=== PATIENT | female | born 1955 | race Caucasian/White ===

== ENCOUNTER → 2020-06-04 | Outpatient (CLI) | payer OTHER, BC ==
[~2020-06-04] VITALS: Ht 160 cm; Wt 82.5 kg
[~2020-06-04] MED LIST: BACLOFEN 10MG T10 MG PO; CELEBREX 200 M200 M1 PO; CYMBALTA60 MG PO; DILTIAZEM ER120 MG PO; HYDROXYZINE HCL50 MG PO; ISOMETHEPT-DIC1 EACH PO; LEVOTHYROXINE25 MC1 PO; LIPITOR40 MG PO; MELOXICAM15 MG PO; NAPROSYN250 MG PO; PREMPHASE 0.621 EAC1 PO; PREVACID15 MG PO; PROTONIX40 M2 PO; RELENZA5 MG IH; RELPAX40 MG PO; ROPINIROLE HCL4 M1 PO; VENLAFAXINE HC150 M1 PO; XANAX 0.5 MG0.5 MG PO; XANAX XR2 MG PO; ZOLOFT100 MG PO
[2020-06-04 10:50] VITALS: BP 140/86
--- NOTE | 2020-06-04 11:00 | NUR ---
Pain Clinic Assessment: 1. History of Osteoarthritis: EVERYWHERE History of Rheumatoid Arthritis: Not Applicable 2. Height: 5 ft. 3 in. 160.0 cm. Weight: 181.8 lb. oz. 82.464 kg. Patient's BMI: 32.2 3. Vital Signs: BP: 140/86 Pulse: 96 Resp: 18 Temp: 02 Sat: 96 ECG Mon: 4. Pain Intensity: 6-8 5. 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 Patient on Blood Thinner: None 7. History of Hypertension: Y 8. Opioid Therapy greater than 6 weeks: N Opiate Contract Signed: 9. Risk Assessment Tool Provided: 4-MOD RISK 10. Functional Assessment Tool: 11. Recreational Drug Use: Never Drug Type: Tobacco Use: Current Every Day Smoker Tobacco Type: Cigarettes Amount or Packs/day: 10 CIG How Many Years: 50 Alcohol Use: No Frequency: Quant:
--- NOTE | 2020-06-05 11:42 | HPC ---
[facility] [place] [address] PAIN MANAGEMENT CONSULTATION Name: KEE DUBOSE Room #: REG SAFIA Apple.#: [id number] Admission: 06/04/20 Attend Phys: Ger Haley DO Discharge: Date of : 55 Report #: [id number] THIS REPORT FOR: cc: OSEI BALL Physician not on staff Ger Haley DO ~ DATE OF SERVICE: 06/04/2020 REFERRING PHYSICIAN: Kita Lozada MD with [facility] CHIEF COMPLAINT: Axial back pain. HISTORY OF PRESENT ILLNESS: As you know, the patient is a 65-year-old female who reports longstanding history of low back pain that began in 1999. She denies injury or trauma. She states pain begins in low back, radiates down the bilateral posterolateral thighs to just below the knees. The patient reports that she has been seen at 5 different pain clinics prior to her referral to our clinic. She has undergone radiofrequency lesioning of the medial branch nerves x 2, one with Dr. Beckham the second with Dr. Villarreal at [facility]. The most recent was done about 4 years ago. The patient reports she has had multiple epidural injections under fluoroscopic guidance without benefit. She has also undergone spinal cord stimulator implantation x 2 and ultimately explantation and she was not noticing much in the way of improvement. The patient recently sought evaluation with Dr. Lozada at [facility] to discuss surgical options. It was determined at that time the patient was likely suffering from facet arthropathy and referred to our clinic to discuss the possibility of undergoing medial branch nerve blocks and radiofrequency lesioning of the medial branch nerves of the lumbar spine. The patient reports today her pain is continuous, steady and constant, describes the pain as shooting, sharp, stabbing and tender. Places current pain score at 8/10, daily average anywhere from 6-8/10, worst the pain has been 10+/10. The patient states the pain is exacerbated with standing still. Pain tends to improve with lying in a recliner and placing heat pads over the area. She has been referred to our service to discuss the possibility of undergoing medial branch nerve blocks and radiofrequency lesioning. PAST MEDICAL HISTORY: 1. Depression. 2. Anxiety. 3. Restless legs syndrome. 4. Gastroesophageal reflux disease. 5. Chronic axial back pain. 6. Colon problems. 7. Thyroid disease. 8. Peptic ulcer disease. [address] [address] PAIN MANAGEMENT CONSULTATION Name: KEE DUBOSE Room #: REG CLI [facility]#: [id number] Admission: 06/04/20 Attend Phys: Ger Haley DO Discharge: Date of : 55 Report #: [id number] 9. Chronic anemia. PAST SURGICAL HISTORY: 1. Tonsillectomy. 2. Cholecystectomy. 3. Hysterectomy. 4. Back surgery. 5. Spinal cord stimulator x 2 with final explantation. SOCIAL HISTORY: The patient admits to 10 cigarettes smoking per day for over 50 years. Denies IV or illicit drug use. Denies any chronic alcohol use. She reports she is retired, retiring about 3 years ago, not receiving workmen's compensation nor is she trying to obtain disability benefits. She is not in litigation in regard to pain. She is accompanied by her present in room today. REVIEW OF SYSTEMS: Positive for weight gain, fatigue and weakness, frequent and recurrent headaches, wearing corrective eyewear, nosebleeds, heart trouble, palpitations, shortness of breath with walking or lying flat, loss of appetite, nausea, vomiting, abdominal pain, nocturia, lightheadedness and dizziness, tremors, memory loss with confusion, nervousness, depression, anxiety, hypothyroidism, heat and cold intolerance, bleeding and bruising tendencies. All other review of systems negative per 12-point review of systems other than those listed in history of present illness. ALLERGIES: OXYCONTIN. CURRENT MEDICATIONS: Meloxicam 15 mg once a day, hydroxyzine 50 mg 4 times a day, diltiazem ER 120 mg once a day, ropinirole 4 mg once a day, pantoprazole 40 mg per day, levothyroxine 25 mcg per day, venlafaxine ER 150 mg 3 tabs in the morning, Xanax 2 mg 3 times a day, atorvastatin 40 mg per day. IMAGING: MRI lumbar spine obtained 04/02/2020 shows L1-2 with right greater than left facet arthropathy in combination with the scoliotic curvature causing mild right neural foraminal narrowing, no central canal stenosis. L2-3, minimal disk bulge, mild facet arthropathy, scoliotic curvature. No significant central canal or neural foraminal stenosis. L3-4 shows mild disk bulge, tiny superimposed right foraminal disk protrusion, mild facet arthropathy and ligamentum flavum hypertrophy. No significant central canal or neural foraminal stenosis. L4-5 degenerative disk disease, bulging disk material, superimposed posterior disk protrusion, facet arthropathy, which is advanced in nature and ligamentum flavum hypertrophy. A combination of results in very mild right neural foraminal narrowing and [id number] central canal stenosis. The herniated disk material comes in close proximity of the transverse and right L5 nerve root. L5-S1 shows facet arthropathy resulting in moderate left and mild right neural foraminal stenosis, no central canal stenosis. [facility] [address] [place] [address] PAIN MANAGEMENT CONSULTATION Name: KEE DUBOSE Room #: REG Jaja ..#: [id number] Admission: 06/04/20 Attend Phys: Ger Haley DO Discharge: Date of : 55 Report #: [id number] PQRS: The patient has known arthritic changes of the lumbar spine. Denies rheumatoid arthritis. She is placing pain intensity anywhere from 6-8/10. She is not a fall risk, but has had a fall in last 3 months, apparently had a fall on Wednesday of last week, trying to waste picker her grandson. She is not on blood thinners, but is treated for hypertension. She is not on chronic opioids, has a moderate opioid addiction potential. Pain impact is 51/70, severe interference of daily activities secondary to pain. PHYSICAL EXAMINATION: VITAL SIGNS: Blood pressure 140/86, pulse 96, respiratory rate 18 and unlabored. The patient is 96% on room air. Height 5 feet 3 inches tall, weight 181.8 pounds, BMI calculated 32.2. GENERAL: Well-developed, well-nourished, well-hydrated exogenously obese 65-year-old female, appearing her stated age, placing current pain score at 6/10. HEENT: Normocephalic, atraumatic. Pupils are round. Extraocular muscles are intact. The patient is using a mask in compliance with COVID-19 regulations. LUNGS: Decreased breath sounds bilaterally. There does not appear to be a prolonged expiratory phase. No wheezes or rhonchi. CARDIOVASCULAR: Regular. No appreciable gallop, no rub. ABDOMEN: Soft, obese. EXTREMITIES: Show no clubbing, no cyanosis. No appreciable edema. MUSCULOSKELETAL: Lower extremity strength is equal and symmetrical 5/5. She is intact to light touch from L1 through S2 dermatomes. Seated straight leg raising negative. Supine straight leg raising negative. Juan's test is negative. Modified Gaenslen's positive for axial low back pain. Ankle clonus negative. Babinski is negative. Lumbar provocation testing is met with slight increase in axial back pain with radiation to the buttocks. ASSESSMENT: 1. Lumbosacral spondylosis without radiculopathy. 2. Facet arthropathy of the lumbar spine. 3. Chronic intractable pain. PLAN: 1. Based on today's physical exam and history the patient has provided, the description the patient uses in regard to pain as well as location of symptoms, the likely source of the patient's pain is the facet joints of the lower lumbar spine. The patient and I had a long discussion today about the treatment options for facet arthropathy, the following was discussed with the patient today. We discussed physical therapy, stretching exercises, core strengthening and a concerted effort at weight loss as the gold standard of treatment for facet arthropathy pain. We discussed suggestions in medication management to assist [address] [address] PAIN MANAGEMENT CONSULTATION Name: KEE DUBOSE Room #: REG Jaja Harris#: [id number] Admission: 06/04/20 Attend Phys: Ger Haley DO Discharge: Date of : 55 Report #: [id number] in pain control. These could include rotation of nonsteroidal anti-inflammatory, possibly even the addition of a neuropathic medication if her symptoms would require. I would not recommend long-term opioid therapy in this patient's case. We discussed addressing the facet joints directly whether this be intra-articular facet injections, medial branch nerve blocks and radiofrequency lesioning. We also discussed surgical options with the patient. After reviewing the risks and benefits of all the proposed treatment options, the patient chose to begin with medial branch nerve blocks and possible radiofrequency lesioning. 2. The patient has been advised risks and benefits of medial branch nerve blocks and radiofrequency lesioning. The risks include but are not necessarily limited to bleeding, bruising, infection, worsening pain, no relief of pain, also risk of temporary or permanent muscle weakness, temporary or permanent inadvertent nerve damage, possible paralysis and . The patient states understood and wished to proceed. 3. No medication changes made at today's visit. We recommend the patient to continue current medical therapy as prior prescribed. 4. We plan to see the patient back in followup visit in 1 week. At that time, review the efficacy of the medial branch nerve blocks provided today. If she sees significant pain improvement with these medial branch blocks and it does correlate with the timing of the medication, we would then plan to undergo the next in the series. If those second series are also successful, she would be a candidate for radiofrequency lesioning. We will have the patient follow up next week and keep you apprised of response. It is noted that the patient underwent the procedure with a pain level of 6-8/10 and upon discharge the pain was around 2/10. 5. We wish to thank Dr. Lozada for the referral of the patient to our clinic. We will keep you apprised of response to treatment as we address facet arthropathy pain. Again, we wish to thank you for the opportunity to see the patient in consultation. PROCEDURE NOTE DESCRIPTION OF PROCEDURE: Bilateral L2, L3, L4, L5 medial branch nerve blocks under fluoroscopic guidance. This is the first of 2 diagnostic medial branch blocks on the right and left sides that the patient is undergoing. After obtaining written consent, the patient was taken back to the fluoroscopy suite and placed in a prone position on the fluoroscopy table with a pillow under the abdomen to decrease the lumbar lordosis. The skin overlying the lumbosacral area was prepped and draped in an aseptic fashion. The L3 transverse process corresponding the L2 medial branch nerve, the L4 transverse [facility] [address] [place] [address] PAIN MANAGEMENT CONSULTATION Name: KEE DUBOSE Room #: REG [facility] [id number] Admission: 06/04/20 Attend Phys: Ger Haley DO Discharge: Date of : 55 Report #: [id number] process corresponding the L3 medial branch nerve and the L5 transverse process corresponding the L4 medial branch nerve on the right and left sides were visualized under AP fluoroscopy. The skin and subcutaneous tissue overlying the target site(s) of injection on the right and left were anesthetized using 2 mL of 1% lidocaine. A 22-gauge 3-1/2 inch spinal needle with a bent tip was advanced under fluoroscopic guidance using a superior to inferior and lateral to medial approach to the dorsal, superior and medial aspect of the base of the transverse process(es). The needles were then directed ventral, medial and caudad to reach the target location(s). An oblique view facilitated needle placement with properly positioned needles(s) in the middle of the "eye" of the Jesse dog for the medial branch block(s). At each site the needle(s) rested on periosteum. After negative aspiration for heme or CSF, 0.5 mL of bupivacaine 0.5% was slowly injected at each site to avoid forcing the solution away from the target points(s). The needle(s) were then removed. The L5 dorsal ramus block on the right and left side was performed using a slightly oblique approach under fluoroscopic guidance, placing the needle within the groove between the sacral site and the superior articular process of S1. The needle rested on periosteum. After negative aspiration for heme or CSF, 0 mL of Omnipaque dye was injected at under live fluoroscopy, demonstrating absence of vascular uptake. After negative aspiration for heme or CSF, 0.5 mL of bupivacaine 0.5% was slowly injected to avoid forcing the solution away from the target point. The needle was then removed. Sterile bandages were placed over the injection site. There were no apparent complications. The patient tolerated the procedure well and was carefully escorted to the recovery room in stable condition. The VAS was 6-8/10 before the procedure and 2/10, 10 minutes after the procedure. After meeting discharge criteria, the patient was discharged home. <ELECTRONICALLY SIGNED> By: Ger Haley DO 06/05/20 1142 1252 1604 Ger Haley DO /nt
== END ==
LOC: PAIN 07:00
PROVIDERS: ATTEND Anesthesiology Pain Medicine
DX: M47.817 Spondylosis without myelopathy or radiculopathy, lumbosacral region (principal); M47.816 Spondylosis without myelopathy or radiculopathy, lumbar region; G89.29 Other chronic pain; F32.9 Major depressive disorder, single episode, unspecified; M54.5 Low back pain; F41.9 Anxiety disorder, unspecified; E07.9 Disorder of thyroid, unspecified; G25.81 Restless legs syndrome; K21.9 Gastro-esophageal reflux disease without esophagitis; D64.9 Anemia, unspecified; Z90.49 Acquired absence of other specified parts of digestive tract; Z90.710 Acquired absence of both cervix and uterus; Z98.890 Other specified postprocedural states; Z79.899 Other long term (current) drug therapy

== ENCOUNTER → 2020-06-11 | Outpatient (CLI) | payer OTHER, BC ==
[~2020-06-11] VITALS: Ht 160 cm; Wt 81.6 kg
[2020-06-11 13:41] VITALS: BP 124/86
--- NOTE | 2020-06-11 14:01 | NUR ---
Pain Clinic Assessment: 1. History of Osteoarthritis: EVERYWHERE History of Rheumatoid Arthritis: Not Applicable 2. Height: 5 ft. 3 in. 160.0 cm. Weight: 179.8 lb. oz. 81.557 kg. Patient's BMI: 31.9 3. Vital Signs: BP: 124/86 Pulse: 102 Resp: 16 Temp: 02 Sat: 96 ECG Mon: 4. Pain Intensity: 5 5. 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 Patient on Blood Thinner: None 7. History of Hypertension: Y 8. Opioid Therapy greater than 6 weeks: N Opiate Contract Signed: 9. Risk Assessment Tool Provided: 4-MOD RISK 10. Functional Assessment Tool: 11. Recreational Drug Use: Never Drug Type: Tobacco Use: Current Every Day Smoker Tobacco Type: Cigarettes Amount or Packs/day: 1/2 PACK How Many Years: 50 Alcohol Use: No Frequency: Quant: Y
--- NOTE | 2020-06-12 11:53 | HPC ---
[facility] [place] [address] PAIN MANAGEMENT CONSULTATION Name: KEE DUBOSE Room #: REG SAFIA Steven#: [id number] Admission: 06/11/20 Attend Phys: Ger Haley DO Discharge: Date of : 55 Report #: [id number] THIS REPORT FOR: cc: OSEI BALL Physician not on staff Ger Haley DO ~ DATE OF SERVICE: 06/11/2020 CHIEF COMPLAINT: Axial back pain. HISTORY OF PRESENT ILLNESS: As you know, the patient is a 65-year-old female with longstanding history of axial back pain issues. She states her pain began somewhere in 1999. She was seen in consultation per the request of Dr. Mora on 06/04/2020 diagnosed with lumbosacral spondylosis without radicular symptoms secondary to facet arthropathy of the lumbar spine. She was established that appointment to undergo medial branch nerve blocks, which were successful at alleviating her symptoms by greater than 90%, lasting for 3-4 hours. This is consistent with the injection, medication provided. She returns today in followup visit to undergo the second in the series of medial branch blocks. If these are then successful at alleviating symptoms again by a significant amount and for the prescribed amount of time, we would then move forward with radiofrequency lesioning of the medial branch nerves of the lumbar spine. She returns today for the second in the series of medial branch nerve blocks. The patient is placing current pain score at 5/10. ALLERGIES: OXYCONTIN. CURRENT MEDICATIONS: Meloxicam, hydroxyzine, diltiazem ER, ropinirole, pantoprazole, levothyroxine, venlafaxine, and Xanax. SOCIAL HISTORY: The patient admits to 10 cigarettes per day over the last 50 years. Denies IV or illicit drug use. Denies any chronic alcohol use. She is retired, retiring about 3 years ago, accompanied by her present in room today. IMAGING: No new imaging available. PQRS: The patient has known arthritic changes of the lumbar spine. Denies rheumatoid arthritis. She is placing pain intensity today at 5/10. She is not a fall risk, but has not had a fall, other than trying to tack picker her grandson, which was indicated in the previous evaluation. There has been no falls since that time. She is not on blood thinners, but is treated for hypertension. She is not on chronic opioids and has a [id number] opioid addiction potential based on assessment tool. Pain impact is 51/70, severe interference of daily activities secondary to pain. [address] [address] PAIN MANAGEMENT CONSULTATION Name: KEE DUBOSE Room #: REG CLJaja Harris#: [id number] Admission: 06/11/20 Attend Phys: Ger Haley DO Discharge: Date of : 55 Report #: [id number] PHYSICAL EXAMINATION: VITAL SIGNS: Blood pressure 124/86, pulse is 102, respiratory rate 16 and unlabored. The patient is 96% on room air. Height 5 feet 3 inches tall, weight 179.8 pounds, BMI calculated 31.9. GENERAL: Well-developed, well-nourished, well-hydrated 65-year-old female, appearing stated age, placing current pain score of 5/10. HEENT: Normocephalic, atraumatic. Pupils equal, round and reactive. NEUROLOGIC: Speech is fluent. The patient is wearing a mask in compliance with COVID-19 regulations. EXTREMITIES: Show no clubbing, no cyanosis. No appreciable edema. MUSCULOSKELETAL: Lower extremity strength is symmetrical 5/5. Muscle bulk and tone equal and symmetrical. Seated straight leg raising negative. Supine straight leg raising negative. Juan's test is negative. Modified Gaenslen's positive for axial low back pain. There are noted skin changes over the lower lumbar spine consistent with first-degree mcconnell secondary to a heating pad application. ASSESSMENT: 1. Lumbosacral spondylosis without radiculopathy. 2. Facet arthropathy of the lumbar spine. 3. Chronic intractable pain. PLAN: 1. The patient returns today in followup visit to undergo the second in the series of medial branch blocks to address lumbar facet arthropathy. The patient reports improvement with the previous injection of 100%, lasting for almost 4 hours. This is consistent with the local anesthetic utilized to address her symptoms. She returns today for the second in the series of injections. If these then are also successful alleviating symptoms for the prescribed amount of time, we would then move forward with radiofrequency lesioning of the medial branch nerves of the lumbar spine. The patient is agreeable with plan. She has been advised risks and benefits, states understood and wished to proceed. 2. No medication changes made at today's visit. The patient will continue current medical therapy as prior prescribed. 3. We will plan to see the patient back in followup visit for possible radiofrequency lesioning of the medial branch nerves based on her efficacy with today's procedure. PROCEDURE NOTE DESCRIPTION OF PROCEDURE: Bilateral L2, L3, L4, L5 medial branch nerve blocks under fluoroscopic guidance. This is the second of the 2 diagnostic medial branch blocks bilaterally which the patient is undergoing. After obtaining written consent, the patient was taken back to fluoroscopy suite, placed in prone position with pillow under [address] [address] PAIN MANAGEMENT CONSULTATION Name: KEE DUBOSE Room #: REG [facility].#: [id number] Admission: 06/11/20 Attend Phys: Ger Haley DO Discharge: Date of : 55 Report #: [id number] abdomen to decrease lumbar lordosis. Skin overlying lumbosacral area then prepped and draped in aseptic fashion. The L3 transverse process corresponding the L2 medial branch nerve, the L4 transverse process corresponding the L3 medial branch nerve and the L5 transverse process corresponding the L4 medial branch nerve on both the left and right sides were visualized under AP fluoroscopy. Skin and subcutaneous tissue overlying the target site of injection was anesthetized with 1 mL of 1% lidocaine. Six 22-gauge 3-1/2 inch spinal needles with bent tips were advanced under fluoroscopic guidance using a superior, inferior, lateral to medial approach to the dorsal superior and medial aspect of the base of the transverse processes. The needles were then all directed caudally to reach the target locations. An oblique view facilitated needle placement with properly positioned needles within the middle of the "eye" of the Jesse dog for each of the medial branch blocks. At each site, needles rested on periosteum. After negative aspiration for heme or cerebrospinal fluid, 0.5 mL of bupivacaine 0.5% was once again injected at each site to avoid forcing the solution away from the target points. [place] were then removed. The L5 dorsal ramus block, both on the left and right side was performed using a slightly oblique approach under fluoroscopic guidance, placing the needle within the groove between the sacral ala and the superior articular process of S1. At each site, the needles rested on periosteum. After negative aspiration for heme or cerebrospinal fluid, 0.5 mL of bupivacaine 0.5% was injected slowly to avoid forcing the solution away from the site. [place] were then removed. Sterile bandage placed over injection sites. The patient tolerated procedure well, carefully escorted to recovery room in stable condition. VAS before procedure rated at 5/10, VAS 10 minutes after procedure rated at 0/10. After meeting our discharge criteria, the patient discharged home. <ELECTRONICALLY SIGNED> By: Ger Haley DO 06/12/20 1153 [id number] 1736 Ger Haley DO /nt
== END | disposition home or self-care (01) ==
LOC: PAIN 06:59
PROVIDERS: ATTEND Anesthesiology Pain Medicine
DX: M47.817 Spondylosis without myelopathy or radiculopathy, lumbosacral region (principal); M47.816 Spondylosis without myelopathy or radiculopathy, lumbar region; G89.29 Other chronic pain; I10 Essential (primary) hypertension; F17.210 Nicotine dependence, cigarettes, uncomplicated; Z98.890 Other specified postprocedural states; Z79.899 Other long term (current) drug therapy

== ENCOUNTER → 2020-06-19 | Outpatient (CLI) | payer OTHER, BC ==
[~2020-06-19] VITALS: Ht 160 cm; Wt 81.4 kg
[2020-06-19 12:59] VITALS: BP 108/75
--- NOTE | 2020-06-19 13:21 | NUR ---
SUBJECTIVE: OBJECTIVE: Pain Clinic Assessment: 1. History of Osteoarthritis: EVERYWHERE History of Rheumatoid Arthritis: Not Applicable 2. Height: 5 ft. 3 in. 160.0 cm. Weight: 179.4 lb. oz. 81.375 kg. Patient's BMI: 31.8 3. Vital Signs: BP: 108/75 Pulse: 100 Resp: 16 Temp: 02 Sat: 100 ECG Mon: 4. Pain Intensity: 5 5. 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 Patient on Blood Thinner: None 7. History of Hypertension: Y 8. Opioid Therapy greater than 6 weeks: N Opiate Contract Signed: 9. Risk Assessment Tool Provided: 4-MOD RISK 10. Functional Assessment Tool: 11. Recreational Drug Use: Never Drug Type: Tobacco Use: Current Every Day Smoker Tobacco Type: Cigarettes Amount or Packs/day: 1/2 pack How Many Years: 50 Alcohol Use: No Frequency: Quant:
--- NOTE | 2020-06-19 15:51 | HPC ---
[address] [place] [address] PAIN MANAGEMENT CONSULTATION Name: KEE DUBOSE Room #: REG SAFIA Apple.#: [id number] Admission: 06/19/20 Attend Phys: Ger Haley DO Discharge: Date of : 55 Report #: [id number] THIS REPORT FOR: cc: OSEI BALL Physician not on staff Ger Haley DO ~ DATE OF SERVICE: 06/19/2020 REFERRING PHYSICIAN: Dr. Tamayo. CHIEF COMPLAINT: Axial back pain. HISTORY OF PRESENT ILLNESS: As you know, the patient is a 65-year-old female returning in followup visit to begin radiofrequency lesioning of the medial branch nerves of the lumbar spine. As you are aware, the patient has had a longstanding history of axial back pain issues that began somewhere in 1999. She was referred to our clinic by her orthopedic surgeon to undergo radiofrequency lesioning. She has successfully completed 2 trial injections addressing the L2, L3, L4, L5 medial branch nerves bilaterally with good improvement in symptoms. She returns for the first portion of the staged radiofrequency lesioning procedure. She is placing pain today at a level of 5/10. She describes the pain as sharp, stabbing, tenderness, shooting and constant. ALLERGIES: OXYCONTIN. CURRENT MEDICATIONS: Meloxicam, hydroxyzine, diltiazem ER, ropinirole, pantoprazole, levothyroxine, venlafaxine, and Xanax. SOCIAL HISTORY: The patient admits to 10 cigarettes per day over the past 50 years. Denies IV or illicit drug use. Denies any chronic alcohol use. She is retired, retired about 3 years ago, accompanied by her who is present in room today. IMAGING: No new imaging available. PQRS: The patient has known arthritic changes of the lumbar spine, bilateral hips. She denies rheumatologic issues. She is not a fall risk and has not had a fall in last 3 months. She is reporting pain intensity a 5/10. She is treated for hypertension, but she is not on any blood thinners. She is not on any chronic opioids, has a [id number] opioid addiction potential based on assessment tool. Pain impact 51/70, severe interference of daily activities secondary to pain. PHYSICAL EXAMINATION: VITAL SIGNS: Blood pressure 108/75, pulse 100, respiratory rate 16 and [facility] [address] [place] [address] PAIN MANAGEMENT CONSULTATION Name: KEE DUBOSE Room #: REG [facility] M.Craig.#: [id number] Admission: 06/19/20 Attend Phys: Ger Haley DO Discharge: Date of : 55 Report #: [id number] unlabored. The patient is 100% on room air. Height 5 feet 3 inches tall, weight 179.4 pounds, BMI calculated 31.8. GENERAL: Well-developed, well-nourished, well-hydrated 65-year-old female, appearing stated age. Pain is rated today 5/10. HEENT: Normocephalic, atraumatic. Pupils equal, round, and responsive. The patient's extraocular muscles are intact. She is wearing a mask in compliance with COVID-19 regulations. EXTREMITIES: Show no clubbing, no cyanosis. No appreciable edema. MUSCULOSKELETAL: Seated straight leg raising negative. Supine straight leg raising negative. Juan's test negative. Modified Gaenslen's positive for axial low back pain. Lumbar provocation testing including extension, rotation, lateral flexion; all intensify axial back pain. ASSESSMENT: 1. Lumbosacral spondylosis without radiculopathy. 2. Facet arthropathy of the lumbar spine. 3. Chronic intractable pain. PLAN: 1. The patient returns today in followup visit to begin radiofrequency lesioning of the medial branch nerves of the lumbar spine. The patient reports right side more painful than left. We will address the L2, L3, L4, L5 medial branch nerves on the right today with plans to follow up in 2 weeks to undergo left L2, L3, L4, L5 medial branch radiofrequency lesioning. The patient is agreeable to undergo the procedure. She has been advised risks and benefits of procedure, states understood and wished to proceed. 2. No medication changes made at today's visit. The patient will continue current medical therapy as prior prescribed. 3. We plan to see the patient back in followup visit in 2 weeks for radiofrequency lesioning of the left L2, L3, L4, L5 medial branch nerves. The patient has been advised not to undergo injections for COVID-19 in the next 2 weeks. She will need to delay the first in the series of COVID-19 injections until 2 weeks after final radiofrequency lesioning planned for 2 weeks from today. The patient understands and will avoid COVID-19 injections until which time it is safe and recommended. We have made the patient appointment back to our clinic in 2 weeks. PROCEDURE NOTE DESCRIPTION OF PROCEDURE: Right L2, L3, L4, L5, lumbar medial branch radiofrequency ablations under fluoroscopic guidance. Procedure was explained. Informed consent was obtained from the patient. The patient was informed of the risks of procedure including infection, bleeding, nerve damage, failure to reduce pain relief and postoperative discomfort lasting [address] [address] PAIN MANAGEMENT CONSULTATION Name: KEE DUBOSE Room #: REG CLI Daxa#: [id number] Admission: 06/19/20 Attend Phys: Ger Haley DO Discharge: Date of : 55 Report #: [id number] several weeks. The patient was then taken back to fluoroscopy suite, placed in prone position with pillows under abdomen to decrease lumbar lordosis. Skin overlying lumbosacral area then prepped and draped in aseptic fashion. AP imaging of the lumbar spine was used to identify the L2 through L5 vertebral bodies and the sacral ala. The target locations on the right side of the L3 transverse process corresponding the L2 medial branch nerve, the L4 transverse process corresponding the L3 medial branch nerve and the L5 transverse process corresponding the L4 medial branch nerve were established. Using a 25-gauge 1-1/4 inch needle, skin wheals were placed at the junction of the transverse process and the superior articular process using 1 mL of 1% lidocaine. We were careful to only anesthetize the skin and not the deep tissue. The radiofrequency lesioning needles were then advanced under fluoroscopic guidance using a superior to inferior, lateral to medial approach to the dorsal superior and medial aspect of the base of the transverse processes. Joanna were then directed to reach the target locations. Oblique view facilitated needle placement with properly positioned needles within the middle of the eye of the Jesse dog. At each site, needles rested on periosteum. Touching bone initially assured the needles were not placed too deeply. Radiofrequency lesioning of the L5 medial branch nerve on the right side was performed using a superior, inferior, lateral to medial approach under fluoroscopic guidance, placing the needle within the groove between the sacral ala and the superior articular process of S1. Needle rested on periosteum. Stimulation was performed at each level once the cannulas were in position. Sensory stimulation was performed at 0.3, 0.2, 0.3 and 0.25 with impedance of 285, 225, 278 and 219 at 50 Hz for the L2, L3, L4, and L5 medial branch nerves respectively. Good stimulation of the lumbar and buttock region was elicited indicating correct alignment with the posterior primary ramus. Absence of lower motor fasciculation was noted at 3 volts 2 Hz stimulation when testing the L2, L3, L4, L5 medial branch nerves respectively. Following this, affirmation of dissociation between sensory and motor stimulation, negative aspiration was noted for heme or cerebrospinal fluid at all levels. Next, 1 mL bupivacaine 0.5% was injected slowly. After a 90-second delay, lesions were performed at a temperature of 80 degrees Celsius for a total of 90 seconds. After the needle tips had cooled, 1 mL of a solution containing 1 mL 40 mg per mL, 40 mg total triamcinolone along with 4 mL bupivacaine 0.5% injected slowly. Joanna were retracted assisted, flushed with 1 mL of 1% lidocaine and removed. Sterile bandage placed over injection site. The patient was able to purposely move all 4 extremities after procedure. The patient tolerated procedure well, carefully escorted [place] [address] PAIN MANAGEMENT CONSULTATION Name: KEE DUBOSE Room #: TIM Harris#: [id number] Admission: 06/19/20 Attend Phys: Ger Haley DO Discharge: Date of : 55 Report #: [id number] stable condition. No apparent complications. After meeting our discharge criteria, the patient discharged home. <ELECTRONICALLY SIGNED> By: Ger Haley DO 06/19/20 [id number] [id number] 1545 Ger Haley DO /nt
== END | disposition home or self-care (01) ==
LOC: PAIN 06:48
PROVIDERS: ATTEND Anesthesiology Pain Medicine
DX: M47.817 Spondylosis without myelopathy or radiculopathy, lumbosacral region (principal); M47.816 Spondylosis without myelopathy or radiculopathy, lumbar region; G89.29 Other chronic pain; I10 Essential (primary) hypertension; M19.90 Unspecified osteoarthritis, unspecified site; F17.210 Nicotine dependence, cigarettes, uncomplicated; Z98.890 Other specified postprocedural states; Z79.899 Other long term (current) drug therapy; Z88.8 Allergy status to other drugs, medicaments and biological substances

== ENCOUNTER → 2020-07-03 | Outpatient (CLI) | payer OTHER, BC ==
[~2020-07-03] VITALS: Ht 160 cm; Wt 82.2 kg
[~2020-07-03] MED LIST changes: +MEDROLDOSEPACK PO; +NABUMETONE 500500 M2 PO; +NEXIUM 24HR20 M2 PO
--- NOTE | ~2020-07-03 | HPC ---
[facility] [place] [address] PAIN MANAGEMENT CONSULTATION Name: KEE DUBOSE Room #: REG SAFIA PappasCassiusCraigCassius#: [id number] Admission: 07/03/20 Attend Phys: Ger Haley DO Discharge: Date of : 55 Report #: [id number] THIS REPORT FOR: cc: OSEI BALL Physician not on staff Ger Haley DO ~ DATE OF SERVICE: 07/03/2020 REFERRING PHYSICIAN: Dr. Kita Johnson CHIEF COMPLAINT: Axial back pain. HISTORY OF PRESENT ILLNESS: As you know, the patient is a 65-year-old female referred to our service to discuss treatment for facet arthropathy of the lumbar spine. She has successfully completed 2 medial branch nerve blocks done bilaterally, which provided good benefit. She returned to our clinic on 06/19/2020 and underwent radiofrequency lesioning of the right L2, L3, L4, L5 medial branch nerves without complications. We received excellent sensory stimulation at appropriate levels and the radiofrequency lesioning was done without complication. She returns today in followup visit, stating that her pain has intensified. She does not wish to proceed with radiofrequency lesioning of the left. She actually feels that her pain has been worsened by the symptoms. This is not atypical for radiofrequency lesioning though typically the pain of the patients tends to improve over a 2-week period of time. This is not the ____ in this patient's case. She returns to discuss options for treatment. ALLERGIES: OXYCONTIN. CURRENT MEDICATIONS: Meloxicam, hydroxyzine, diltiazem ER, ropinirole, pantoprazole, levothyroxine, venlafaxine, Xanax. SOCIAL HISTORY: The patient admits to 10 cigarettes per day and has done so for 50 years. Denies IV or illicit drug use. Denies any chronic alcohol use. Retired, retired about 3 years ago, accompanied by her present in room today. IMAGING: No new imaging available. PQRS: The patient has known arthritic changes of the lumbar spine, bilateral hips. No rheumatologic issues. She is a fall risk and has had falls in the past 3 months. She is not on blood thinners, but is treated for hypertension. She is not on chronic opioids, but has a moderate opioid addiction potential. Pain impact is 51/70, severe interference of daily activities secondary to pain. PHYSICAL EXAMINATION: [facility] [address] [place] [address] PAIN MANAGEMENT CONSULTATION Name: KEE DUBOSE Room #: REG SAFIA Steven#: [id number] Admission: 07/03/20 Attend Phys: Ger Haley DO Discharge: Date of : 55 Report #: [id number] VITAL SIGNS: Blood pressure 115/72, pulse is 98, respiratory rate 20 and unlabored. The patient is 97% on room air. Height 5 feet 3 inches tall, weight 181.2 pounds and BMI calculated 32.1. GENERAL: Well-developed, well-nourished, well-hydrated 65-year-old female, appearing stated age. She is in moderate distress secondary to pain, placing current pain score today at 9/10. HEENT: Normocephalic, atraumatic. Pupils equal, round and reactive. Speech is fluent. EXTREMITIES: Show no clubbing, no cyanosis, no edema. MUSCULOSKELETAL: Tenderness to palpation is noted over the right paraspinal musculature of lower lumbar spine. No spinous process tenderness. Seated straight leg raising negative. Supine straight leg raising negative. Juan's test is negative. Modified Gaenslen's remains positive for axial back pain. ASSESSMENT: 1. Lumbosacral spondylosis without radiculopathy. 2. Facet arthropathy of the lumbar spine. 3. Myofascial pain. 4. Chronic intractable pain. PLAN: 1. The patient returns today in followup visit having completed radiofrequency lesioning on the right side addressing the L2, L3, L4, L5 medial branch nerves. We sustained excellent findings during the radiofrequency lesioning with acquisition of the nerves at acceptable sensory stimulation level 0.3, 0.2, 0.3 and 0.25, all well below the 0.5 recommended for radiofrequency lesioning. Motor stimulation was disassociated with the sensory which is consistent with the radiofrequency lesioning. The fact the patient continues to experience pain in the area is not unusual with radiofrequency lesioning procedures. There are times where patients can have prolonged pain in the area and are advised of such. The patient at this time does not wish to proceed with radiofrequency lesioning of the left. She wishes to follow up with her orthopedic surgeon, Dr. Johnson to discuss more aggressive treatment options. 2. We have provided the patient a prescription of nabumetone to take the place of her meloxicam. This will provide better analgesic benefit. I have given her 500 mg tablet 3 times a day to take. She will watch for dyspepsia, worsening of blood pressure, lower extremity edema with its use. If she notes any side effects, discontinue immediately and return to her baseline meloxicam dosing. 3. I have provided the patient a Medrol Dosepak to take immediately. This will help reduce the inflammatory process initiated by the radiofrequency lesioning and it should improve the patient's overall symptoms. She was given a Medrol Dosepak to initiate today. 4. We plan to see the patient back in followup visit on an as needed basis. We are hopeful that the patient will ultimately see good analgesic benefit with the radiofrequency lesioning on the right and we are open for her to come back to undergo radiofrequency lesioning on the left if she wishes to do so. She will [address] [address] PAIN MANAGEMENT CONSULTATION Name: GRACYKEE ELLIS Room #: REG CLJaja Apple.#: [id number] Admission: 07/03/20 Attend Phys: Ger Haley DO Discharge: Date of : 55 Report #: [id number] be following up with Dr. Johnson in regards to surgical options as she is not confident if she wants to continue with the radiofrequency lesioning processes. By: 0800 0820 Ger Haley DO /nt
[2020-07-03 10:24] VITALS: BP 115/72
--- NOTE | 2020-07-03 10:43 | NUR ---
Pain Clinic Assessment: 1. History of Osteoarthritis: EVERYWHERE History of Rheumatoid Arthritis: Not Applicable 2. Height: 5 ft. 3 in. 160.0 cm. Weight: 181.2 lb. oz. 82.192 kg. Patient's BMI: 32.1 3. Vital Signs: BP: 115/72 Pulse: 98 Resp: 20 Temp: 02 Sat: 97 ECG Mon: 4. Pain Intensity: 9 5. Fall Risk: Dizziness: N Needs help standing or walking: N Fallen in the last 3 months: Y Fall risk comments: FEEL LAST WEDNESDAY TRYING TO [employer] 6. Patient on Blood Thinner: None 7. History of Hypertension: Y 8. Opioid Therapy greater than 6 weeks: N Opiate Contract Signed: 9. Risk Assessment Tool Provided: 4-MOD RISK 10. Functional Assessment Tool: 11. Recreational Drug Use: Current within past 3 mos Drug Type: MEDICAL MARIJUANA HELPS Tobacco Use: Current Every Day Smoker Tobacco Type: Cigarettes Amount or Packs/day: 10/DAY How Many Years: Alcohol Use: No Frequency: Quant:
== END ==
LOC: PAIN 06:43
PROVIDERS: ATTEND Anesthesiology Pain Medicine
DX: M47.817 Spondylosis without myelopathy or radiculopathy, lumbosacral region (principal); G89.4 Chronic pain syndrome; M79.10 Myalgia, unspecified site; Z79.891 Long term (current) use of opiate analgesic; Z79.899 Other long term (current) drug therapy